=== PATIENT | male | born 1980 | race Caucasian/White ===

== ENCOUNTER 2022-02-13 11:15 | Emergency (ER) | payer SELFPAY ==
[2022-02-13 12:12] VITALS: BP 147/97; PULSE 74; RESP 16; TEMP 36.8; O2SAT 99; BMI 25.1
[2022-02-13] MEDS: LIDOCAINE 1 % PF 30 ML INJECTION (12:48)
[2022-02-13] MEDS: BUPIVACAINE 0.25% 30 ML INJECTION (12:49)
--- NOTE | 2022-02-13 13:01 | ED_ITS ---
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 No other lacerations are noted, he bundle these up, was dripping a fair bit of blood common came in, he has no other injury noted. Unsure when his last tetanus status was updated. Place: work Patient tetanus UTD: No Context: accidental Associated symptoms: none Related Data Home Medications Medication Instructions Recorded Confirmed No Known Home Medications 02/13/22 02/13/22 Allergies Allergy/AdvReac Type Severity Reaction Status Date / Time No Known Drug Allergies Allergy Verified 02/13/22 12:16 Review of Systems Status of ROS: Reports: 6 or more systems reviewed and unremarkable except as noted in History and below Exam Narrative: Exam Narrative: Examination reveals lacerations, with loss of skin over the left pad surface totaling approximately 1.5 centimeter sq, and a small laceration of the 4th finger pad surface is D IP flexion extension is normal, as is the other PIP noted. No sensory loss, given the amount of pain he is having no, and inter digital block was done over his 2nd and 4th finger, we are currently waiting for this and then we will clean it up. Tetanus will be updated Const: Vital Signs, click to edit/add: Vital Signs - 24 hr 02/13/22 12:12 Temperature 98.2 F Pulse Rate [Right Pulse Oximeter] 74 Respiratory Rate 16 Blood Pressure [Ri ght Upper Arm] 147/97 H Pulse Oximetry 99 Course Course Hospital Course: After the wound was cleaned out, I was able to put 2 simple sutures in, on the 4th finger, pad surface that is approximated the wound, there was still some tissue loss, this will have to fill in, on the 2nd finger there is some was all just tissue loss, this will have to fill in over the pad surface and area of approximately 2 x 2 cm. He will be giving finger gauze dressings, bacitracin and Stack finger splints for these 2 fingers. Vital Signs Vital signs: Initial Vital Signs Temperature 98.2 F 02/13/22 12:12 Temperature Source Temporal Artery Scan 02/13/22 12:12 Pulse Rate 74 02/13/22 12:12 Pulse Rhythm 02/13/22 12:12 Respiratory Rate 16 02/13/22 12:12 Blood Pressure 147/97 H 02/13/22 12:12 Blood Pressure Mean 113 02/13/22 12:12 Blood Pressure Position Sitting 02/13/22 12:12 Pulse Oximetry 99 02/13/22 12:12 Vital Signs Temperature 98.2 F 02/13/22 12:12 Pulse Rate 74 02/13/22 12:12 Respiratory Rate 16 02/13/22 12:12 Blood Pressure 147/97 H 02/13/22 12:12 Pulse Oximetry 99 02/13/22 12:12 Temperature 98.2 F 02/13/22 12:12 Pulse Rate 74 02/13/22 12:12 Respiratory Rate 16 02/13/22 12:12 Blood Pressure 147/97 H 02/13/22 12:12 Pulse Oximetry 99 02/13/22 12:12 Discharge Plan Discharge Clinical Impression: Laceration, Avulsion of skin Patient Disposition: Home, Self-Care Condition: Improved Instructions: Finger Laceration (ED) Additional Instructions: Home, rest, bacitracin daily on the wound, he probably can get by tomorrow with just the Band-Aids larger ones around the finger, allowing this to heal in, where the Stack finger splint for the next week or so, home signs of infection such as redness swelling that he should come back and be seen. Sutures should come out in 10 days. This can be done inter primary care clinic. Prescriptions: No Action No Known Home Medications Follow Up/Referrals: Provider,Not a Local [Primary Care Provider] - Stand Alone Forms: [facility] Info Instructions
[2022-02-13] MEDS: TETANUS/DIPHTH/PERTUSSIS 0.5 ML SYRINGE IM (13:15)
[2022-02-13] MEDS: ACETAMINOPHEN 500 MG TABLET 1000 MG PO (13:15)
[2022-02-13 15:00] VITALS: BP 135/88; PULSE 71; RESP 16; O2SAT 100
== END 2022-02-13 15:10 | disposition home or self-care (01) ==
PROVIDERS: Emergency Provider Family Medicine
DX: S61.211A Laceration without foreign body of left index finger without damage to nail, initial encounter (principal); S61.215A Laceration without foreign body of left ring finger without damage to nail, initial encounter; W31.2XXA Contact with powered woodworking and forming machines, initial encounter
CPT/HCPCS: 12001; 90471; 90715; 99283; A9270; J2001; J3490